=== PATIENT | female | born 1985 | race American Indian/Alaskan Native ===

== ENCOUNTER 2019-02-13 02:34 | Emergency (ER) | payer MEDICAID ==
[2019-02-13 02:49] VITALS: TEMP 98.2
--- NOTE | 2019-02-13 03:00 | ED PDOC ---
Arrival/HPI <London Pineda - Last Filed: 02/13/19 04:03> - General Historian: Patient - History of Present Illness Narrative History of Present Illness (Text): 02/13/19 02:57 Patient is a 34yo F with no significant PMH presenting to ED with palpitations. She reports experiencing fluttering in her chest yesterday and today, both times after work. She denies chest pain, nausea, sweating, or chest pressure. She denies shortness of breath. She reports feeling anxious and having a panic attack yesterday after work. She reports prior history of these symptoms after smoking too many cigarettes. She reports drinking 2 cups of strong coffee today, as well as yesterday. She denies fever, chills, abdominal pain, vomiting, dysuria. She reports soft stools since yesterday. She denies any new medications. 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 <Rupal Willingham - Last Filed: 02/13/19 04:26> - General Chief Complaint: Palpitations Time Seen by Provider: 02/13/19 02:48 Past Medical History - Reproductive Menopause: No - Cardiac Hx Heart Murmur: Yes (Congenital) - Psychiatric Hx Substance Use: No <Rupal Willingham - Last Filed: 02/13/19 04:26> Family/Social History Family/Social History: No Known Family HX Smoking Status: Light Smoker < 10 Cigarettes Daily Hx Alcohol Use: No Hx Substance Use: No <Rupal Willingham - Last Filed: 02/13/19 04:26> Allergies/Home Meds <London Pineda - Last Filed: 02/13/19 04:03> <Rupal Willingham - Last Filed: 02/13/19 04:26> Allergies/Adverse Reactions: Allergies No Known Allergies Allergy (Verified 02/13/19 02:44) Home Medications: Home Meds Medication Instructions Recorded Confirmed No Known Home Med 02/13/19 02/13/19 Review of Systems - Review of Systems Constitutional: Normal Eyes: Normal ENT: Normal Respiratory: SOB Cardiovascular: Palpitations. absent: Chest Pain Gastrointestinal: Normal Genitourinary Female: Normal Musculoskeletal: Normal Skin: Normal Neurological: Normal Endocrine: Normal Hemo/Lymphatic: Normal Psychiatric: Anxiety <Rupal Willingham - Last Filed: 02/13/19 04:26> Physical Exam Vital Signs Temp Pulse Resp BP Pulse Ox 02/13/19 02:48 98.2 F 73 19 150/83 98 <London Pineda - Last Filed: 02/13/19 04:03> Vital Signs Reviewed: Yes Vital Signs Temp Pulse Resp BP Pulse Ox 02/13/19 02:48 98.2 F 73 19 150/83 98 Temperature: Afebrile Blood Pressure: Hypertensive Pulse: Regular Respiratory Rate: Normal Appearance: Positive for: Well-Appearing, Non-Toxic, Comfortable Pain Distress: None Mental Status: Positive for: Alert and Oriented X 3 - Systems Exam Head: Present: Atraumatic, Normocephalic Pupils: Present: PERRL Extroacular Muscles: Present: EOMI Conjunctiva: Present: Normal Mouth: Present: Moist Mucous Membranes Neck: Present: Normal Range of Motion Respiratory/Chest: Present: Clear to Auscultation, Good Air Exchange. No: Respi ratory Distress, Accessory Muscle Use Cardiovascular: Present: Regular Rate and Rhythm, Murmurs, Normal S1, S2 Abdomen: Present: Normal Bowel Sounds. No: Tenderness, Distention, Peritoneal Signs Upper Extremity: Present: Normal Inspection. No: Cyanosis, Edema Lower Extremity: Present: Normal Inspection. No: Edema Neurological: Present: GCS=15, CN II-XII Intact, Speech Normal Skin: Present: Warm, Normal Color. No: Dry, Rashes Psychiatric: Present: Alert, Oriented x 3, Anxious. No: Normal Insight, Normal Concentration <Betito Willinghamortega - Last Filed: 02/13/19 04:26> Medical Decision Making ED Course and Treatment: Impression: Pt seen and evaluated with medical data analyst on all. Aware and agree with HPI, clinical findings, plan, and management. Pt, with no significant past medical history, presented with palpitations and anxiety. Plan: -- EKG -- Chest X-ray -- Labs, TSH, T4, troponin -- Urinalysis -- Reassess and disposition - RAD Interpretation Radiology Orders: 02/13/19 02:56 CHEST PORTABLE [RAD] Stat <London Pineda - Last Filed: 02/13/19 04:03> ED Course and Treatment: 02/13/19 03:00 r/o ACS palptiations likely due to increased caffeine consumption and anxiety - EKG: NSR @84bpm - CBC/CMP - troponin - CXR - UA - UDS - reassess 02/13/19 04:22 - neg troponin - CXR: no active disease - UDS neg - patient feeling well a this time, attributes her prior symptoms to increased amounts of strong coffee. Patient advised to stay hydrated and avoid excess caffeine. Patient understood instructions and agreed. - RAD Interpretation Radiology Orders: 02/13/19 02:56 CHEST PORTABLE [RAD] Stat <Rupal Willingham - Last Filed: 02/13/19 04:26> - PA / SCREEN MACHINE OPERATOR / Resident Statement / has reviewed & agrees with the documentation as recorded. KAYLEE has examined the patient and agrees with the treatment plan. <London Pineda - Last Filed: 02/13/19 04:03> Disposition/Present on Arrival <London Pineda - Last Filed: 02/13/19 04:03> - Present on Arrival Any Indicators Present on Arrival: No History of DVT/PE: No History of Uncontrolled Diabetes: No Urinary Catheter: No History of Decub. Ulcer: No History Surgical Site Infection Following: None - Disposition Have Diagnosis and Disposition been Completed?: Yes Disposition Time: 04:24 <Rupal Willingham - Last Filed: 02/13/19 04:26> - Disposition Diagnosis: Anxiety, Caffeine intoxication Disposition: HOME/ ROUTINE Condition: STABLE Discharge Instructions (ExitCare): Anxiety, Adult (DC) Additional Instructions: Please follow up with your primary care physician within a week. Please avoid drinking excess amounts of caffeine as well as smoking. If symptoms worsen, return to the emergency department. Referrals: [facility] at [facility] [Outside] - Follow up with primary Forms: [employer] (Turkish)
[2019-02-13 03:43] LABS: PH,URINE 6.5 (4.7-8.0); URINE BILIRUBIN NEGATIVE (NEGATIVE); URINE BLOOD TRACE-INTACT (NEGATIVE); URINE GLUCOSE (UA) NEGATIVE (NEGATIVE); URINE LEUKOCYTE ESTERASE TRACE Leu/uL (NEGATIVE); URINE PROTEIN NEGATIVE mg/dL (<30 mg/dL); URINE UROBILINOGEN 0.2 E.U./dL (<1 E.U./dL)
[2019-02-13 03:48] LABS: ALB/GLOB RATIO 1.2 (1.1-1.8); ALBUMIN 4.6 g/dL (3.0-4.8); ALT/SGPT 13 U/L (7-56); AST/SGOT 26 U/L (14-36); BLOOD UREA NITROGEN 10 mg/dL (7-21); CALCIUM 9.5 mg/dL (8.4-10.5); GFR NON-AFRICAN AMERICAN > 60
[2019-02-13 03:50] LABS: URINE APPEARANCE CLEAR (CLEAR); URINE COLOR YELLOW (YELLOW)
[2019-02-13 03:51] LABS: BASO # 0.02 K/mm3 (0.0-2.0); BASO % 0.3 % (0.0-3.0); EOS # 0.1 (0.0-0.7); EOS % 1.3 % (1.5-5.0); HEMOGLOBIN 12.5 g/dL (12.0-16.0); LYMPH # 3.5 (1.2-3.4); MEAN CELL VOLUME 81.4 fl (80.0-105.0); MEAN CORPUSCULAR HEMOGLOBIN 26.7 pg (25.0-35.0); MEAN CORPUSCULAR HGB CONC 32.7 g/dl (31.0-37.0); MEAN PLATELET VOLUME 10.4 fl (7.0-11.0); MONO # 0.3 (0.1-0.6); MONO % 4.8 % (1.0-6.0); RBC 4.69 10^6/uL (3.5-6.1); RED CELL DISTRIBUTION WIDTH 14.5 % (11.5-14.5); WHITE BLOOD COUNT 6.2 10^3/uL (4.5-11.0)
[2019-02-13 03:59] LABS: TROPONIN I < 0.01 ng/mL
[2019-02-13 04:04] LABS: FREE T4 1.28 ng/dL (0.78-2.19)
[2019-02-13 04:10] LABS: BARBITURATES, UR NEGATIVE (NEGATIVE); BENZODIAZEPINES, UR NEGATIVE (NEGATIVE); OPIATES, UR NEGATIVE (NEGATIVE); PHENCYCLIDINE, UR NEGATIVE (NEGATIVE)
[2019-02-13 04:17] LABS: URINE BACTERIA SMALL /hpf
[2019-02-13 05:09] VITALS: BP 128/83; PULSE 70; RESP 18; O2SAT 100
--- NOTE | 2019-02-13 09:05 | CARD ---
APPROVED REPORT Date of service: 02/13/2019 EKG Measurement Heart [id number] <Conclusion> Normal sinus rhythm Normal ECG
--- NOTE | 2019-02-13 09:09 | RAD ---
Date of service: 02/13/2019 HISTORY: chest pain COMPARISON: No prior. TECHNIQUE: 1 view obtained. FINDINGS: LUNGS: No active pulmonary disease. PLEURA: No significant pleural effusion identified, no pneumothorax apparent. CARDIOVASCULAR: No aortic atherosclerotic calcification present. Normal cardiac size. No pulmonary vascular congestion. OSSEOUS STRUCTURES: No significant abnormalities. VISUALIZED UPPER ABDOMEN: Normal. OTHER FINDINGS: None. IMPRESSION: No active disease.
== END 2019-02-13 04:40 | disposition home or self-care (01) ==
LOC: ED 02:34 → MERGE 02:34 → ED 04:40
DX: F15.929 Other stimulant use, unspecified with intoxication, unspecified (principal); F41.9 Anxiety disorder, unspecified; F17.210 Nicotine dependence, cigarettes, uncomplicated